=== PATIENT | female | born 1955 | race Caucasian/White ===

== ENCOUNTER 2020-10-18 13:52 | Outpatient (CLI) | payer OTHER, SELFPAY ==
--- NOTE | ~2020-10-18 | XR_ITS ---
EXAMINATION: XR shoulder LT min 2V DATE: 10/18/2020 14:16 INDICATION: Left shoulder pain. TECHNIQUE: 5 views of left shoulder were obtained. COMPARISON: None. FINDINGS: Bone alignment is normal. No fracture. There is mild osteoarthritis of glenohumeral joint c haracterized by tiny marginal osteophytes. Acromioclavicular joint is normal. IMPRESSION: 1. Mild glenohumeral joint osteoarthritis. Reviewed, dictated and finalized at location A. GER BALANCE
== END 2020-10-18 13:53 | disposition home or self-care (01) ==
PROVIDERS: PCP Internal Medicine; Visit Provider Nurse Practitioner Family
DX: M25.512 Pain in left shoulder (principal)
CPT/HCPCS: 73030

== ENCOUNTER 2020-11-03 10:21 | Outpatient (RCR) | payer OTHER, SELFPAY ==
--- NOTE | 2020-11-03 11:24 | PTOPEVAL ---
Thank you for referring Maribeth Crump to [facility].? The patient is scheduled to be seen for therapy? _2___x/week for 12 visits. Please review, sign, date and return this plan of care ANGÉLICA. I agree with and certify that the following plan of care is medically necessary. Referring Physician Date Admitting Provider: Attending Provider: Shen Pizarro MD Referring Provider: *PT Outpatient Evaluation Start: 11/03/20 08:29 Freq: Status: Active Protocol: Document 11/03/20 10:19 ACR (Rec: 11/03/20 11:23 ACR [id number]) Therapy Assessment Status Assessment Status Assessment Status Evaluation Evaluation Information Problem Diagnosis L frozen shoulder Onset 10/04/20 Subjective Information Patient states before COVID Query Text:As Reported By Patient/ she started having shoulder Family pain but did not go in until recently and was diagnosed with a frozen shoulder. Patient states she got an X- ray which showed a frozen shoulder. She states she does not have any radicular symptoms. Patient states she is having difficulty putting on her bra, mowing the grass, pulling weeds, sleeping, and reaching back or out for anything. Prior Level of Function Activity Level (Last 3 Months) Occupation retired Hand Dominance Right Activity of Daily Living Ability Independent Indoor/Home Mobility Independent Community Mobility Independent Stairs Ability Independent Functional Cognition (Planning, Shopping Independent , Taking Medications) Cooking Yes Cleaning Yes Laundry Yes Shopping Yes Driving Yes Pain Assessment Timing of Pain Assessment Timing of Pain Assessment Assessment Pain Scale Pain Scale Used Numeric (1 - 10) Self Report Pain Assessment Left Shoulder(s) Reported Pain Level 6 Pain Description Aching,Dull,Sharp,Shooting Pain Frequency Continuous Lowest Pain Intensity 0 Greatest Pain Intensity 9 Pain Score Pain Score 6: Self Report Interventions Used Interventions Used By Clinicians Activity or ADL's,Education, Electrical Stimulation, Exercise,Heat Upper
--- NOTE | 2021-01-06 17:24 | PCPTNOTE ---
Patient is a 65 year old female that participated in 11 visits for a L frozen shoulder. The patient is considering potential surgical intervention and would like to be discharged at this time. Please refer to most recent treatment note for discharge status. Thank you, Geraldine Jones, PT, DPT
== END 2020-12-08 13:47 | disposition home or self-care (01) ==
LOC: CHSPT 10:21
PROVIDERS: PCP Internal Medicine; Visit Provider Internal Medicine
DX: M25.512 Pain in left shoulder (principal); M75.02 Adhesive capsulitis of left shoulder
CPT/HCPCS: 97014; 97110; 97140; 97161; G0283

== ENCOUNTER 2020-12-11 06:38 | Outpatient (CLI) | payer OTHER, SELFPAY ==
--- NOTE | ~2020-12-11 | MR_ITS ---
EXAMINATION: MR shoulder LT wo con DATE: 12/11/2020 07:33 INDICATION: Left shoulder pain. TECHNIQUE: Magnetic resonance imaging (MRI) of the left shoulder was performed without intravenous co ntrast. Sequences included axial PD-weighted FS FSE, coronal oblique PD-weighted FS FSE and T2-weight ed FS FSE, and sagittal oblique T2-weighted FS FSE and T1-weighted FSE. COMPARISON: Left shoulder radiograph 10/18/2020 FINDINGS: Coracoacromial arch: The acromion undersurface is curved in morphology (type II). There is mild acromioclavicular joint os teoarthritis. There is mild subacromial/subdeltoid bursitis. Rotator cuff: There is mild supraspinatus and infraspinatus tendinopathy. Teres minor tendon is normal. There is mi ld subscapularis tendinopathy. No tear. There is no asymmetric fatty atrophy of the rotator cuff musc le bellies. Biceps tendon and glenoid labrum: Biceps tendon is in bicipital groove. Intra-articular biceps tendon is normal. The glenoid labrum is normal. Fluid: There is no glenohumeral joint effusion. Bones/cartilage: Humeral head cartilage is normal. Glenoid cartilage is normal. IMPRESSION: 1. Mild rotator cuff tendinopathy. No tear. 2. Mild subacromial/subdeltoid bursitis. 3. Mild acromioclavicular joint osteoarthritis. Reviewed, dictated and finalized at location A.
== END 2020-12-11 06:39 | disposition home or self-care (01) ==
LOC: CHSIMG 06:40
PROVIDERS: PCP Internal Medicine; Visit Provider Internal Medicine
DX: M25.512 Pain in left shoulder (principal)
CPT/HCPCS: 73221

== ENCOUNTER 2021-08-02 00:14 | Day surgery (SDC) | payer OTHER, SELFPAY ==
[2021-07-22 09:41] VITALS: BMI 27.2
[2021-08-02 11:25] VITALS: BP 144/78; PULSE 95; RESP 18; TEMP 36.6; O2SAT 99
[2021-08-02] MEDS: LACTATED RINGERS 1,000 ML 150 ML IV CONT (11:42)
--- NOTE | 2021-08-02 11:43 | P.CONGI_ITS ---
Assessment and Plan Assessment and plan (1) Encounter for screening colonoscopy: Code(s): Z12.11 - Encounter for screening for malignant neoplasm of colon Status: Acute Assessment and Plan: Patient presents for screening colonoscopy. She appears to be at average risk for colon polyps. GI Consult Note Consult date/time: 08/02/21 11:43 HPI: Maribeth Crump is a 65 year old female Presents for screening colonoscopy. Patient's current weight appetite bowel movements are normal. She denies abdominal pain. She has had no bleeding. Family history is noncontributory. Last exam was 10 years ago. Review of Systems Review of Systems: All systems reviewed & are unremarkable except as noted in HPI and below PMFSH Family History Family History (Updated 02/25/19 @ 10:13 by DOCTOR UNKNOWN) Grandparent Family history of malignant neoplasm Father Family history of malignant neoplasm, Onset Age: 68 Other Hypertension Social History Social History Smoking status: Never smoker Alcohol intake: never Substance use: never Substance use type: does not use Living arrangements: with family Spiritual care concerns: Yes (Oriental Orthodox) Meds Home Medications and Allergies Home Medications Medication Instructions Recorded Confirmed Type rosuvastatin 10 mg PO DAILY 07/22/21 07/22/21 History Allergies Allergy/AdvReac Type Severity Reaction Status Date / Time azithromycin AdvReac Mild Diarrhea Verified 08/02/21 11:24 codeine AdvReac Mild Nausea and Verified 08/02/21 11:24 Vomiting Vital Signs Vital Signs - 24 hr 08/02/21 11:25 Temperature 97.8 F Pulse Rate 95 Respiratory Rate 18 Blood Pressure 144/78 H Pulse Oximetry 99 Exam Narrative: Physical exam reveals patient be alert. Vital signs stable. HEENT exam is unremarkable. Patient is anicteric. Lungs are clear to auscultation and percussion. Heart is without murmur or extra sounds. Abdominal exam bowel sounds are present soft nontender with no organomegaly. Digital external rectal exam is normal.
--- NOTE | 2021-08-02 12:01 | WPDANESEPPF ---
Anes - Initial Pre Proc Eval Procedure: Operation Date: 08/02/21 13:00 Proposed Procedures p Screening Colonoscopy - Rufino Pastor MD Date/Time: 08/02/21 12:01 Surgeon: Rufino Pastor MD Pre Op Diagnosis: neoplasm screening Patient Data Age: 65 Gender: F Height: 1.63 m Weight: 71 kg Last Vital Signs Temp 97.8 F 08/02/21 11:25 Pulse 95 08/02/21 11:25 Resp 18 08/02/21 11:25 BP 144/78 H 08/02/21 11:25 Pulse Ox 99 08/02/21 11:25 Allergies Allergy/AdvReac Type Severity Reaction Status Date / Time azithromycin AdvReac Mild Diarrhea Verified 08/02/21 11:24 codeine AdvReac Mild Nausea and Verified 08/02/21 11:24 Vomiting Home Medications Medication Instructions Recorded Confirmed Type rosuvastatin 10 mg PO DAILY 07/22/21 07/22/21 History Patient hx anesthesia problems: none Family hx anesthesia problems: none Results Review: All pre-operative results and documents have been reviewed as part of the pre-operative evaluation. PMFSH Past Medical History Medical History (Updated 08/02/21 @ 12:01 by Jose Jade MD) Hyperlipidemia Family History Family History (Updated 02/25/19 @ 10:13 by DOCTOR UNKNOWN) Grandparent Family history of malignant neoplasm Father Family history of malignant neoplasm, Onset Age: 68 Other Hypertension Social History Social History Smoking status: Never smoker Alcohol intake: never Substance use: never Substance use type: does not use Living arrangements: with family Spiritual care concerns: Yes (Anabaptist) Anes - Eval Final PreProcedure Day of Procedure 08/02/21 12:01 Patient weight: normal Heart: regular rate and rhythm Lungs: clear to auscultation Airway: Mallampati scale Last oral intake: >/= 8 hours ASA classification: II Emergent: no Anesthetic plan: proceed Anesthesia type and monitoring: general GIVS and standard monitoring Results Review: All pre-operative results and documents have been reviewed as part of the pre-operative evaluation. Informed Consent: The patient's anesthetic plan and its attendant risks and benefits were discussed with the patient/family/POA. Questions were solicited and answers provided to the satisfaction of the patient/family/POA.
[2021-08-02 12:31] VITALS: BP 124/76; PULSE 76; RESP 22; O2SAT 99
[2021-08-02 12:41] VITALS: BP 142/85; PULSE 79; RESP 19; O2SAT 100
[2021-08-02 12:51] VITALS: BP 144/89; PULSE 75; RESP 10; O2SAT 100
== END 2021-08-02 13:00 | disposition home or self-care (01) ==
PROVIDERS: PCP Internal Medicine; Visit Provider Internal Medicine Gastroenterology
PROC: 0DJD8ZZ Inspection of Lower Intestinal Tract, Via Natural or Artificial Opening Endoscopic (ICD-10-PCS; CPT 45378; principal; 2021-08-02 13:00)
DX: Z12.11 Encounter for screening for malignant neoplasm of colon (principal); K64.8 Other hemorrhoids; K57.30 Diverticulosis of large intestine without perforation or abscess without bleeding; E78.5 Hyperlipidemia, unspecified
CPT/HCPCS: 45378; J2001; J2704; J7120

== ENCOUNTER 2022-03-31 07:20 | Outpatient (CLI) | payer MEDICARE, SELFPAY ==
[2022-03-31 07:40] LABS: Hematocrit 45.1 % (35.0-42.0); Hemoglobin 14.8 g/dL (11.7-13.8); Mean Corpuscular HGB Conc 32.8 g/dL (32.0-36.0); Mean Corpuscular Hemoglobin 29.2 pg (27.0-31.0); Mean Corpuscular Volume 89.1 fL (78.0-102.0); Platelet Count Result 208 K/mm3 (150-420); Red Blood Count 5.06 M/mm3 (4.20-5.40); Red Cell Distribution Width 13.3 % (11.6-14.4); White Blood Count 6.8 K/mm3 (4.8-10.8)
[2022-03-31 08:16] LABS: Thyroid Stimulating Hormone 1.24 uIU/mL (0.36-3.74)
[2022-04-04 11:18] LABS: Sex Hormone Binding Globulin 7 nmol/L (14-73)
[2022-04-05 20:58] LABS: FSH 57.5 mIU/mL (***)
[2022-04-06 11:47] LABS: Testosterone Free 3.9 pg/mL (0.1-6.4); Testosterone Total 13 ng/dL (2-45)
[2022-04-08 20:47] LABS: Estradiol, Ultrasensitive 8 pg/mL
== END 2022-03-31 07:21 | disposition home or self-care (01) ==
LOC: CHSLAB 07:25
PROVIDERS: PCP Internal Medicine; Visit Provider Family Medicine
DX: N95.1 Menopausal and female climacteric states (principal); R53.83 Other fatigue; E34.9 Endocrine disorder, unspecified; R68.82 Decreased libido
CPT/HCPCS: 36415; 82670; 83001; 84270; 84402; 84403; 84443; 85027

== ENCOUNTER 2022-10-28 03:55 | Emergency (ER) | payer MEDICARE, OTHER, SELFPAY ==
--- NOTE | ~2022-10-28 | CT_ITS ---
EXAMINATION: CT abdomen pelvis wo con DATE: 10/28/2022 04:27 INDICATION: Left lower quadrant abdominal and flank pain. TECHNIQUE: Computed tomography (CT) of the abdomen and pelvis was performed without intravenous contr ast. Automated exposure control and iterative reconstruction technique were employed. The dose-length product was 498.50 mGy-cm. COMPARISON: None FINDINGS: Lung bases are clear. Heart size is normal. No pericardial or pleural effusion. Small sliding-type hi atal hernia. A couple calcified gallstones in the normal-appearing gallbladder with no pericholecysti c inflammatory stranding to suggest acute cholecystitis. Liver, spleen, pancreas and bilateral adrena l glands are normal. Kidneys and ureters are normal with no urolithiasis, hydroureteronephrosis or pe rinephric/ureteral stranding. There is mild colonic diverticulosis with a sigmoid predominance. Ther e is no adjacent inflammatory change to suggest diverticulitis. Small bowel and appendix are normal. Bladder is normal. No free intraperitoneal gas or fluid. No pathologically enlarged abdominal or pelv ic lymphadenopathy. Mild lumbar and mild to moderate and lumbosacral spondylosis. IMPRESSION: 1. No acute intra-abdominal/pelvic process. 2. Mild diverticulosis. 3. Cholelithiasis. 4. Small sliding-type hiatal hernia. Reviewed, dictated and finalized at location A. K MACHINE OPERATOR
[2022-10-28 04:00] VITALS: BP 156/79; PULSE 74; RESP 18; TEMP 36.1; O2SAT 99
--- NOTE | 2022-10-28 04:03 | ED.GENADULT ---
HPI - General Adult General Chief complaint: Abdominal Pain Stated complaint: Left side abd pain Time Seen by Provider: 10/28/22 04:03 History of Present Illness HPI narrative: the patient is a 66-year-old woman who has history of hyperlipidemia and no other medical conditions. Only operation is a hysterectomy on her abdomen years ago. The patient presents with left lower quadrant pain since 1:00 a.m. this morning, woke her up from sleep, worsening since that time, initially dull and now more sharp, constant in nature, localized to the left lower quadrant, nonradiating, moderate in intensity. Associated symptoms include nausea but no vomiting. No urinary symptoms such as dysuria urinary urgency or frequency or hematuria. No previous similar pain. No hematochezia or melena. No URI symptoms. No cough or dyspnea. No fevers or chills or diaphoresis. No diarrhea or constipation. Normal bowel movements. Related Data Home Medications Medication Instructions Recorded Confirmed rosuvastatin 10 mg tablet 10 mg PO DAILY 07/22/21 10/28/22 Allergies Allergy/AdvReac Type Severity Reaction Status Date / Time azithromycin AdvReac Mild Diarrhea Verified 08/02/21 11:24 codeine AdvReac Mild Nausea and Verified 08/02/21 11:24 Vomiting Review of Systems Review of Systems: All systems reviewed & are unremarkable except as noted in HPI and below Constitutional: Constitutional: Reports as per HPI, Reports no additional constitutional complaints, Denies chills, Denies excessive sweating, Denies fatigue, Denies fever(s), Denies headache(s) and Denies weakness Eyes: Eyes: Reports as per HPI, Reports no additional eye complaints, Denies change in vision and Denies photophobia ENT: Reports system reviewed and no additional complaints, except as documented, Reports as per HPI, Denies dysphagia, Denies vertigo, Denies dizziness, Denies headache(s), Denies lip swelling, Denies nasal congestion, Denies sore throat, Denies throat swelling and Denies tongue swelling Cardiovascular: Cardiovascular: Reports as per HPI, Reports no additional cardiovascular complaints, Denies chest pain, Denies syncope, Denies rapid heart rate and Denies dyspnea Respiratory: Respiratory: Reports as per HPI, Reports no additional respiratory complaints, Denies chest congestion, Denies cough, Denies dyspnea and Denies wheezing Gastrointestinal: Gastrointestinal: Reports as per HPI, Reports no additional gastrointestinal complaints, Reports abdominal pain, Denies constipation, Denies dysphagia, Denies diarrhea, Reports nausea and Denies vomiting Genitourinary: Genitourinary: Reports as per HPI, Denies hematuria, Denies urinary frequency, Denies dysuria, Denies urinary incontinence and Denies urinary urgency Musculoskeletal: Musculoskeletal: Reports no additional musculoskeletal complaints, Denies back pain, Denies myalgias, Denies arthralgias, Denies joint swelling and Denies numbness Integumentary/Breasts: Skin/Breast: Reports system reviewed and no additional complaints, except as docu, Denies pruritus, Denies erythema, Denies rash and Denies skin ulcer Neurologic: Reports system reviewed and no additional complaints, except as documented, Reports as per HPI, Denies confusion, Denies vertigo, Denies dizziness, Denies syncope, Denies headache(s), Denies focal weakness, Denies numbness and Denies weakness Psychiatric: Psychiatric: Reports as per HPI, Denies anxiety, Denies confusion, Denies depression, Denies homicidal ideation and Denies suicidal ideation Endocrine: Endocrine: Reports no additional endocrine complaints, Denies excessive sweating, Denies fatigue, Denies polydipsia and Denies polyuria Hematologic/Lymphatic: Hematologic/Lymphatic: Reports no additional hematologic/lymphatic complaints, Denies easy bleeding and Denies easy bruising Allergic/Immunologic: Allergic/Immunologic: Reports no additional allergic/immunologic complaints, Denies lip swelling, Denies throat
[2022-10-28 04:19] LABS: Basophils Absolute Auto 0.05 K/mm3 (0.00-0.10); Basophils Percent Auto 0.8 % (0.0-1.0); Eosinophils Absolute Auto 0.06 K/mm3 (0.02-0.50); Eosinophils Percent Auto 0.9 % (1.0-6.0); Hematocrit 42.1 % (35.0-42.0); Hemoglobin 13.9 g/dL (11.7-13.8); Immature Granulocyte Absolute 0.02 K/mm3 (0.00-0.00); Immature Granulocyte Percent A 0.3 % (0.0-0.0); Lymphocytes Absolute Auto 2.12 K/mm3 (1.10-4.50); Lymphocytes Percent Auto 33.2 % (18.0-42.0); Mean Corpuscular Volume 87.9 fL (78.0-102.0); Mean Platelet Volume 10.7 fl (9.2-11.8); Monocytes Absolute Auto 0.48 K/mm3 (0.10-0.90); Monocytes Percent Auto 7.5 % (2.0-11.0); Neutrophils Absolute Auto 3.7 K/mm3 (1.7-7.2); Neutrophils Percent Auto 57.3 % (50.0-70.0); Platelet Count Result 227 K/mm3 (150-420); Red Blood Count 4.79 M/mm3 (4.20-5.40); Red Cell Distribution Width 13.2 % (11.6-14.4); White Blood Count 6.4 K/mm3 (4.8-10.8)
[2022-10-28 04:20] LABS: Appearance Urine Clear (Clear); Bilirubin Urine Negative (Negative); Blood Urine Negative (Negative); Color Urine Light Yellow (Yellow); Glucose Urine UA Negative (Negative); Ketones Urine Negative (Negative); Leukocyte Esterase Ur Negative LEU/UL (Negative); Nitrate Urine Negative (Negative); Protein Urine Negative (Negative); Urobilinogen Urine 0.2 mg/dL (0.2-1.0)
[2022-10-28 04:22] LABS: Add Urine Microscopic? NO
[2022-10-28] MEDS: SODIUM CHLORIDE 0.9% IV 1,000 ML 999 ML IV CONT (04:34)
[2022-10-28] MEDS: KETOROLAC 30 MG/ML VIAL (*BKC) 15 MG IV PUSH (04:35)
[2022-10-28] MEDS: ONDANSETRON INJ 4 MG/2 ML VIAL IV PUSH (04:35)
[2022-10-28 04:36] LABS: Alanine Aminotransferase 20 U/L (14-59); Albumin Level 3.8 g/dL (3.4-5.0); Alkaline Phosphatase 109 U/L (46-116); Amylase 33 U/L (25-115); Anion Gap 8 mmol/L (8-16); Aspartate Amino Transferase 15 U/L (15-37); Bilirubin,Total 0.5 mg/dL (0.00-1.00); Blood Urea Nitrogen 14 mg/dL (7-18); Calcium 8.7 mg/dL (8.5-10.1); Carbon Dioxide 28 mmol/L (21-32); Chloride 105 mmol/L (98-108); Estimated CRCL calculation 57 ml/min; Estimated Glomerular Filt Rate > 60; Glucose 102 mg/dL (70-99); Lipase 29 U/L (16-77); Osmolality Calculated 292 mOsm/kg (285-295); Potassium 4.2 mmol/L (3.5-5.1); Sodium 141 mmol/L (136-145); Total Protein 7.4 g/dL (6.4-8.2)
[2022-10-28 05:45] VITALS: BP 145/82; PULSE 78; RESP 18; O2SAT 99
--- NOTE | 2022-10-28 05:50 | PC.NURSE ---
Pt resting c blanket, VSS, explained about wait time for CT results and reason for delay.
[2022-10-28 06:26] VITALS: BP 113/57; PULSE 74; RESP 20; O2SAT 100
--- NOTE | 2022-10-28 06:29 | PC.NURSE ---
Lights dimmed, VSS pt. resting, still awaiting CT scan results report.
[2022-10-28 08:09] VITALS: BP 132/75; PULSE 72; RESP 18; O2SAT 98
== END 2022-10-28 08:10 | disposition home or self-care (01) ==
PROVIDERS: Emergency Medicine; Emergency Provider Emergency Medicine; PCP Internal Medicine
DX: R10.32 Left lower quadrant pain (principal); E78.5 Hyperlipidemia, unspecified
CPT/HCPCS: 36415; 74176; 80053; 81003; 82150; 83690; 85025; 96361; 96374; 96375; 99284; J1885; J2405; J7030

== ENCOUNTER 2024-10-11 07:20 | Emergency (ER) | payer MEDICARE, OTHER, SELFPAY ==
--- NOTE | ~2024-10-11 | XR_ITS ---
EXAMINATION: XR knee RT min 4V DATE: 10/11/2024 07:40 INDICATION: Anterior right knee pain and swelling post fall TECHNIQUE: Anteroposterior, sunrise, oblique and crosstable lateral views of the right knee were obta ined COMPARISON: None. FINDINGS: Subtle linear lucency projecting across the inferior third of the patella suspicious for nondisplaced intra-articular fracture. Alignment remains normal. No other lesions suspicious for fracture identif ied. Joint spaces appear normal on nonweightbearing imaging. Mild infrapatellar soft tissue swelling. Possible small right knee joint effusion. Cluster of 5, 1-3 mm calcification projecting over the int ercondylar notch which could represent degenerative loose bodies or heterotopic ossification related to old trauma. IMPRESSION: 1. Likely nondisplaced intra-articular fracture extending across the inferior third of the patella. Reviewed, dictated and finalized at location A. NG FELLER BLINDSTITCH IMPRESSION: 1. Likely nondisplaced intra-articular fracture extending across the inferior t hird of the patella.
[2024-10-11 07:20] VITALS: BP 144/98; PULSE 98; RESP 16; TEMP 36.3; O2SAT 99
--- OUTSIDE RECORDS SUMMARY | 2024-10-11 07:23 | XMS_ITS | Referral Summary ---
Author Organization [facility] Address [address] [place] [address] Care Team Providers Care Key Worker Name Role Phone Shen Pizarro MD Primary Care Provider Allergies No known active allergies Active Problems Problem Noted Date Diagnosed Date Abnormal mammogram 09/19/2010 Social History Tobacco Use Types Packs/Day Years Used Date Smoking Tobacco: Never Assessed Comments No Sex and Gender Information Value Date Recorded Sex Assigned at Not on file Legal Sex Female 4:15 PM DEAN OF FACULTY Gender Identity Not on file Sexual Orientation Not on file Last Filed Vital Signs Vital Sign Reading Time Taken Comments Blood Pressure - - Pulse - - Temperature - - Respiratory Rate - - Oxygen Saturation - - Inhaled Oxygen Concentration - - Weight 70.3 kg (155 lb) 04/19/2020 1:41 PM CDT Height 162.6 cm (5' 4 ) 07/10/2023 8:21 AM DEAN OF FACULTY Body Mass Index 26.61 04/19/2020 1:41 PM CDT Plan of Treatment Not on file Procedures Procedure Name Priority Date/Time Associated Diagnosis Comments SCREENING MAMMOGRAM BILATERAL W AZ Schedule Routine, Read Routine (OP Routine) 07/10/2023 8:29 AM DEAN OF FACULTY Screening mammogram, encounter for from Last 3 Months or Most Recently Relevant to Health Maintenance Results * Screening Mammogram Bilateral W Az (07/10/2023 8:29 AM DEAN OF FACULTY) Anatomical Region Laterality Modality Breast Bilateral Mammography 07/10/2023 8:51 AM DEAN OF FACULTY Impressions 07/10/2023 8:51 AM DEAN OF FACULTY There is no mammographic evidence of malignancy. A 1 year screening mammogram is recommended. BI-RADS: 2 - Benign. The patient has been or will be contacted. The patient will be entered into a reminder system with a target due date of 1 year for her next mammogram. Electronically signed by: Naresh Miller M.D. Narrative 07/10/2023 8:51 AM DEAN OF FACULTY EXAMINATION: SCREENING MAMMOGRAM BILATERAL W AZ ORDERING HEALTHCARE PROVIDER: SELF SCREENING MAMMOGRAM HISTORY: Routine screening mammography. COMPARISON: 06/28/2022, 04/20/2021, 04/19/2020, 01/03/2019, 12/13/2017, 12/07/2016, 11/15/2015 TECHNIQUE: CC and MLO views of the bilateral breasts were obtained with digital technique using breast tomosynthesis with C view. Computer aided detection was utilized. FINDINGS: DENSITY: There are scattered fibroglandular elements in the bilateral breasts. BREASTS: There is an unchanged benign oval circumscribed mass at the 12-1 o'clock position of the right breast, posterior depth. There is also a stable benign intramammary lymph node in the lateral right breast, posterior depth. There is no new suspicious finding in either breast on mammogram. us Self Screening Mammogram IMG MAMMO PROCEDURES Fi nal Result from Last 3 Months or Most Recently Relevant to Health Maintenance Insurance [facility] CHOICE PLUS [facility] CHOICE PLUS MEDICARE [employer] Care Teams Key Worker Relationship Specialty Start Date End Date Shen Pizarro MD [address] [place] [address] [facility] - General 12/07/16
--- OUTSIDE RECORDS SUMMARY | 2024-10-11 07:23 | XMS_ITS | Clinical Summary ---
Author Organization [facility] Address [address] [place] [address] Care Team Providers Care Supervisory Forester Name Role Phone Shen Pizarro MD Primary Care Provider [phone] Allergies No known active allergies Active Problems Problem Noted Date Diagnosed Date Abnormal mammogram 09/19/2010 Surgical History Surgery Date Site/Laterality Comments HYSTERECTOMY 08/20/2003 - 08/19/2004 OOPHORECTOMY 08/20/2003 - 08/19/2004 Family History Medical History Relation Name Comments Breast cancer Neg Hx Ovarian cancer Neg Hx Thyroid cancer Neg Hx Social History Tobacco Use Types Packs/Day Years Used Date Smoking Tobacco: Never Assessed Comments No Sex and Gender Information Value Date Recorded Sex Assigned at Not on file Legal Sex Female 4:15 PM FILENET ARCHITECT Gender Identity Not on file Sexual Orientation Not on file Obstetrics History Para Term AB IAB SAB Ectopic Multiple Livin g Live Births 2 2 2 Date Outcome GA Total Labor Labor/2nd/3rd Weight Sex Type Anes PTL Kathie A1 A5 Name Clin Term Term Last Filed Vital Signs Vital Sign Reading Time Taken Comments Blood Pressure - - Pulse - - Temperature - - Respiratory Rate - - Oxygen Saturation - - Inhaled Oxygen Concentration - - Weight 70.3 kg (155 lb) 04/19/2020 1:41 PM CDT Height 162.6 cm (5' 4 ) 07/10/2023 8:21 AM FILENET ARCHITECT Body Mass Index 26.61 04/19/2020 1:41 PM CDT Plan of Treatment Health Maintenance Due Date Last Done Comments Colon Cancer Screening-Colonoscopy 1955 Depression Screening 1955 Fall Risk Assessment 1955 Hepatitis C Screening 1955 Osteoporosis Screening-Bone Density Scan 1955 Hepatitis B Screening 12/28/1973 Zoster Vaccine (2 of 3) 03/07/2016 01/11/2016 Pneumococcal vaccine 65+ (1 of 1 - PCV) 12/28/2020 Well Visit 65+ 12/28/2020 Influenza Vaccine (#1) 2024 9, 05/20/2018, 05/08/2017, Additional history exists Breast Cancer Screening-Mammogram 07/10/2024 07/10/2023, 06/28/2022, 04/20/2021, Additional history exists DTaP/Tdap/Td Vaccine (3 - Td or Tdap) 07/02/2029 07/02/2019, 09/30/2009 Procedures Procedure Name Priority Date/Time Associated Diagnosis Comments SCREENING MAMMOGRAM BILATERAL W XU Schedule Routine, Read Routine (OP Routine) 07/10/2023 8:29 AM FILENET ARCHITECT Screening mammogram, encounter for from Last 3 Months or Most Recently Relevant to Health Maintenance Results * Screening Mammogram Bilateral W Xu (07/10/2023 8:29 AM FILENET ARCHITECT) Anatomical Region Laterality Modality Breast Bilateral Mammography 07/10/2023 8:51 AM FILENET ARCHITECT Impressions 07/10/2023 8:51 AM FILENET ARCHITECT There is no mammographic evidence of malignancy. A 1 year screening mammogram is recommended. BI-RADS: 2 - Benign. The patient has been or will be contacted. The patient will be entered into a reminder system with a target due date of 1 year for her next mammogram. Electronically signed by: Naresh Miller M.D. Narrative 07/10/2023 8:51 AM FILENET ARCHITECT EXAMINATION: SCREENING MAMMOGRAM BILATERAL W XU ORDERING HEALTHCARE PROVIDER: SELF SCREENING MAMMOGRAM HISTORY: [...] Most Recently Relevant to Health Maintenance Insurance [facility] CHOICE PLUS MEDICARE [employer] Care Teams Supervisory Forester Relationship Specialty Start Date End Date Shen Pizarro MD [address] [place] [address] PCP - General 12/07/16
[2024-10-11] MEDS: ACETAMINOPHEN 500 MG TABLET 1000 MG PO (07:44)
--- NOTE | 2024-10-11 07:48 | ED.LOWEXIN ---
HPI - Extremity Injury (Lower) General Chief Complaint: Extremity Injury, Lower Stated Complaint: fall; right knee pain Time Seen by Provider: 10/11/24 07:24 History of Present Illness HPI Narrative: Patient reports that she was walking down 3 stairs out of her garage this morning when she fell from the 2nd stair landing directly on her right knee. She immediately had pain in the area and was unable to bear weight on the knee. She happened to have some crutches at home already and so use these to come to the emergency department. She denies any previous injury to this knee. No history of knee replacement. The patient is not on any blood thinners. Patient denies any other injuries in the event. She did not hit her head. She did not lose consciousness. She denies any hip pain. Denies any foot pain. Related Data Home Medications ?Medication ?Instructions ?Recorded ?Confirmed ?Last Taken ?Type rosuvastatin 10 mg tablet 10 mg PO DAILY 07/22/21 10/28/22 08/01/21 History Allergies Allergy/AdvReac Type Severity Reaction Status Date / Time azithromycin AdvReac Mild Diarrhea Verified 10/11/24 07:24 codeine AdvReac Mild Nausea and Verified 10/11/24 07:24 Vomiting Review of Systems Review of Systems: Prior to the fall today patient was in her usual state of health and she denies any recent illness or other injuries. She is not having any trouble breathing or any chest pain. [facility] Past Medical History Medical History Hyperlipidemia Family History Family History Grandparent Family history of malignant neoplasm Father Family history of malignant neoplasm, Onset Age: 68 Other Hypertension Social History Social History Smoking status: Never smoker Alcohol intake: never Substance use: never Substance use type: does not use Living arrangements: with family Spiritual care concerns: Yes (Moravian) Exam Narrative: Exam of the right knee shows an approximate 5 cm x 5 cm hematoma with superficial abrasions over the anterior knee in distribution of the patella. There is no obvious deformity other than the swelling. Tenderness over the patella in distribution of the hematoma. No tenderness on the lateral or posterior knee. Range of motion is limited by pain but patient does have active extension intact. Distal pulses are intact. No trauma noted to the ankle full range of motion no swelling. No trauma noted to the right hip full range of motion no pain no swelling. Course Vital Signs Vital signs: Vital Signs Temperature 36.3 C L 10/11/24 07:20 Pulse Rate 98 10/11/24 07:20 Respiratory Rate 16 10/11/24 07:20 Blood Pressure 144/98 H 10/11/24 07:20 Pulse Oximetry 99 10/11/24 07:20 Oxygen Delivery Room Air 10/11/24 07:20 Temperature 36.3 C L 10/11/24 07:20 Pulse Rate 75 10/11/24 08:16 Respiratory Rate 16 10/11/24 08:16 Blood Pressure 131/85 10/11/24 08:16 Pulse Oximetry 99 10/11/24 08:16 Oxygen Delivery Room Air 10/11/24 08:16 MDM - Extremity Injury (Lower) MDM Narrative Medical decision making narrative: Patient was placed in Room #:?2 Independent Historian: the patient External Source Review: none Differential diagnosis includes but not limited to:? patellar fracture. Various other ligamentous injuries including ACL tear or MCL tear. Possible meniscal tear. Likely sprain of knee in addition to any fractures. Medications were Reviewed: Home medications Independently Interpreted by me: none Medications, treatment, ED course: patient received 1 g of acetaminophen for pain. x-rays were obtained. Knee was wrapped in an Rikki bandage placed in a knee immobilizer. Instructions for follow-up with PCP and orthopedic nurse practitioner. radiology confirms: Subtle linear lucency projecting across the inferior third of the patella suspicious for nondisplaced intra-articular fracture. Social situation impacting patients care: Patient lives independently in the community with her Shared decision making:? patient is amenable to the plan Accepting physician: N DISCHARGE DIAGNOSIS: patellar fracture DISPOSITION: home with follow-up PCP and orthopedic nurse practitioner CONDITION AT DISCHARGE:? stable Discharge Plan Discharge Clinical Impression: Nondisplaced comminuted fracture of right patella Patient Disposition: Home, Self-Care Condition: Stable Instructions: Antibiotic Form, Knee Pain (ED) Additional Instructions: You have a subtle fracture of your knee cap also known as the patella. Please keep the Rikki wrap and a knee immobilizer on at all times. It can be remove to readjust them or to sit on a shower chair while bathing but please replace them quickly after that. Do not put any weight on your leg until you are seen in follow-up. I recommend you call 1st thing Sunday morning to make an appointment with your primary care physician. You also need to see an orthopedic nurse practitioner. The on-account resolution specialist in the [facility] today is Dr. Benny Monte [phone]. if you call his office they can help schedule you for follow-up. As we discussed, please return to the emergency department immediately if you have new severe pain or if you notice new sudden swelling and redness in your leg as this could be a sign of a blood clot. for pain, alternate taking acetaminophen 1000 mg every 8 hours and ibuprofen 400 mg every 6 hours. He only need to take these medications as needed for pain you do not have to take them around the clock if your knee feels okay. Patient Language: Tajik Prescriptions: No Action ondansetron 4 mg tablet,disintegrating 4 mg PO Q6H PRN (Reason: nausea and vomiting) Qty: 10 0RF rosuvastatin 10 mg tablet 10 mg PO DAILY Follow-up/Referrals: Shen Pizarro MD [Primary Care Provider] - Time of Disposition: 08:09
--- OUTSIDE RECORDS SUMMARY | 2024-10-11 08:02 | XMS_ITS | Clinical Summary ---
Author Organization [facility] Address [address] [place] [address] Care Team Providers Care Ethnoarchaeologist Name Role Phone Shen Pizarro MD Primary Care Provider [phone] Allergies No known active allergies Active Problems [...] on file Legal Sex Female 4:15 PM WEB SITE PROJECT MANAGER Gender Identity Not on file Sexual Orientation [...] cm (5' 4 ) 07/10/2023 8:21 AM WEB SITE PROJECT MANAGER Body Mass Index 26.61 04/19/2020 1:41 PM CDT Plan of Treatment Health Maintenance Due Date Last Done Comments Colon Cancer Screening-Colonoscopy 1955 Depression Screening 1955 Fall Risk Assessment 1955 Hepatitis C Screening 1955 Osteoporosis Screening-Bone Density Scan 1955 Hepatitis B Screening 12/28/1973 Pneumococcal vaccine 65+ (1 of 1 - PCV) 12/28/2005 Zoster Vaccine (2 of 3) 03/07/2016 01/11/2016 Well Visit 65+ 12/28/2020 Influenza Vaccine (#1) 2024 9, 05/20/2018, 05/08/2017, Additional history exists Breast Cancer Screening-Mammogram 07/10/2024 07/10/2023, 06/28/2022, 04/20/2021, Additional history exists DTaP/Tdap/Td Vaccine (3 - Td or Tdap) 07/02/2029 07/02/2019, 09/30/2009 Procedures Procedure Name Priority Date/Time Associated Diagnosis Comments SCREENING MAMMOGRAM BILATERAL W XU Schedule Routine, Read Routine (OP Routine) 07/10/2023 8:29 AM WEB SITE PROJECT MANAGER Screening mammogram, encounter for from Last 3 Months or Most Recently Relevant to Health Maintenance Results * Screening Mammogram Bilateral W Xu (07/10/2023 8:29 AM WEB SITE PROJECT MANAGER) Anatomical Region Laterality Modality Breast Bilateral Mammography 07/10/2023 8:51 AM WEB SITE PROJECT MANAGER Impressions 07/10/2023 8:51 AM WEB SITE PROJECT MANAGER There is no mammographic evidence of malignancy. A 1 year screening mammogram is recommended. BI-RADS: 2 - Benign. The patient has been or will be contacted. The patient will be entered into a reminder system with a target due date of 1 year for her next mammogram. Electronically signed by: Naresh Miller M.D. Narrative 07/10/2023 8:51 AM WEB SITE PROJECT MANAGER EXAMINATION: SCREENING MAMMOGRAM BILATERAL W XU ORDERING [...] Most Recently Relevant to Health Maintenance Insurance [facility] HMO/PPO Address: [address] [address] [place] [address] [facility] CHOICE PLUS [facility] HMO/PPO Address: [address] [address] [place] [address] MEDICARE [employer] Care Teams Ethnoarchaeologist Relationship Specialty Start Date End Date Shen Pizarro MD [address] [place] [address] PCP - General 12/07/16
--- OUTSIDE RECORDS SUMMARY | 2024-10-11 08:02 | XMS_ITS | Referral Summary ---
Author Organization [facility] Address [address] [place] [address] Care Team Providers Care Manager Mining Name Role Phone Shen Pizarro MD Primary Care Provider Allergies No known active allergies Active Problems Problem Noted Date Diagnosed Date Abnormal mammogram 09/19/2010 Social History Tobacco Use Types Packs/Day Years Used Date Smoking Tobacco: Never Assessed Comments No Sex and Gender Information Value Date Recorded Sex Assigned at Not on file Legal Sex Female 4:15 PM ROLL HANDLER Gender Identity Not on file Sexual Orientation Not on file Last Filed Vital Signs Vital Sign Reading Time Taken Comments Blood Pressure - - Pulse - - Temperature - - Respiratory Rate - - Oxygen Saturation - - Inhaled Oxygen Concentration - - Weight 70.3 kg (155 lb) 04/19/2020 1:41 PM CDT Height 162.6 cm (5' 4 ) 07/10/2023 8:21 AM ROLL HANDLER Body Mass Index 26.61 04/19/2020 1:41 PM CDT Plan of Treatment Not on file Procedures Procedure Name Priority Date/Time Associated Diagnosis Comments SCREENING MAMMOGRAM BILATERAL W AZ Schedule Routine, Read Routine (OP Routine) 07/10/2023 8:29 AM ROLL HANDLER Screening mammogram, encounter for from Last 3 Months or Most Recently Relevant to Health Maintenance Results * Screening Mammogram Bilateral W Az (07/10/2023 8:29 AM ROLL HANDLER) Anatomical Region Laterality Modality Breast Bilateral Mammography 07/10/2023 8:51 AM ROLL HANDLER Impressions 07/10/2023 8:51 AM ROLL HANDLER There is no mammographic evidence of malignancy. A 1 year screening mammogram is recommended. BI-RADS: 2 - Benign. The patient has been or will be contacted. The patient will be entered into a reminder system with a target due date of 1 year for her next mammogram. Electronically signed by: Naresh Miller M.D. Narrative 07/10/2023 8:51 AM ROLL HANDLER EXAMINATION: SCREENING MAMMOGRAM BILATERAL W AZ ORDERING [...] Most Recently Relevant to Health Maintenance Insurance [facility] CHOICE PLUS [facility] H[facility]/PPO Address: [facility] [address] [place] [address] [facility] CHOICE PLUS [facility] HMO/PPO Address: [address] [address] [place] [address] MEDICARE [employer] Care Teams Manager Mining Relationship Specialty Start Date End Date Shen Pizarro MD [address] [place] [address] [facility] - General 12/07/16
[2024-10-11 08:16] VITALS: BP 131/85; PULSE 75; RESP 16; O2SAT 99
== END 2024-10-11 08:21 | disposition home or self-care (01) ==
PROVIDERS: Emergency Provider Family Medicine; PCP Internal Medicine
DX: S82.001A Unspecified fracture of right patella, initial encounter for closed fracture (principal); E78.5 Hyperlipidemia, unspecified; W10.9XXA Fall (on) (from) unspecified stairs and steps, initial encounter
CPT/HCPCS: 73564; 99283; L1830

== ENCOUNTER 2024-11-04 08:49 | Outpatient (CLI) | payer MEDICARE, OTHER, SELFPAY ==
--- NOTE | ~2024-11-04 | XR_ITS ---
Right Knee Technique: AP, lateral, and sunrise views were obtained. Clinical History: Patellar fracture COMPARISON: 10/11/2024 Findings: Nondisplaced transverse fracture of the patella is stable from prior exam. Joint spaces are preserved without degenerative or erosive change. Soft tissues are unremarkable. No joint effusion i s seen. Impression: Stable nondisplaced transverse fracture of the patella. Reviewed, dictated and finalized at location M. Impression: Stable nondisplaced transverse fracture of the patella.
--- OUTSIDE RECORDS SUMMARY | 2024-11-04 09:14 | XMS_ITS | Clinical Summary ---
Author Organization [facility] Address [address] [place] [address] Care Team Providers Care Boat Builder Name Role Phone Shen Pizarro MD Primary Care Provider [phone] Allergies No known active allergies Active Problems Problem Noted Date Diagnosed Date Abnormal mammogram 09/19/2010 Encounters Date Type Department Care Team Description 10/31/2024 9:09 AM CDT - 10/31/2024 11:59 PM CDT Hospital Encounter [facility] [address] [place] [address] Screening mammogram, encounter for Discharge Disposition: Discharge to home or self care from Last 3 Months Surgical History Surgery Date Site/Laterality Comments HYSTERECTOMY [...] on file Legal Sex Female 4:15 PM BINDER FIXER Gender Identity Not on file Sexual Orientation [...] cm (5' 4 ) 07/10/2023 8:21 AM BINDER FIXER Body Mass Index 26.61 04/19/2020 1:41 PM [...] Additional history exists Breast Cancer Screening-Mammogram 07/10/2024 10/31/2024, 07/10/2023, 06/28/2022, Additional history exists DTaP/Tdap/Td Vaccine (3 - Td or Tdap) 07/02/2029 07/02/2019, 09/30/2009 Procedures Procedure Name Priority Date/Time Associated Diagnosis Comments SCREENING MAMMOGRAM BILATERAL W AZ Schedule Routine, Read Routine (OP Routine) 10/31/2024 9:27 AM CDT Screening mammogram, encounter for from Last 3 Months Results * Screening Mammogram Bilateral W Az (10/31/2024 9:27 AM CDT) Anatomical Region Laterality Modality Breast Bilateral Mammography 11/03/2024 10:3 6 AM CDT Impressions 11/03/2024 10:36 AM CDT There is no mammographic evidence to suggest malignancy. The patient may continue screening mammography as per ACR guidelines. FINAL ASSESSMENT: BI-RADS Category 1: Negative. Electronically signed by: Evie Gutierrez M.D. Narrative 11/03/2024 10:36 AM CDT EXAMINATION: BILATERAL SCREENING MAMMOGRAM WITH TOMOGRAPHY HISTORY: Screening. COMPARISON(S): 07/10/2023, 06/28/2022, 04/20/2021, 04/19/2020. TECHNIQUE: Full-field 2D images and digital tomosynthesis images were obtained. CAD was utilized. BREAST PARENCHYMAL COMPOSITION: There are scattered areas of fibroglandular density. FINDINGS: There are no suspicious masses, calcifications or areas of architectural distortion in either breast. There is no significant change. Procedure Note Evie Gutierrez MD - 11/03/2024 EXAMINATION: BILATERAL SCREENING MAMMOGRAM WITH TOMOGRAPHY HISTORY: Screening. COMPARISON(S): 07/10/2023, 06/28/2022, 04/20/2021, 04/19/2020. TECHNIQUE: Full-field 2D images and digital tomosynthesis images were obtained. CAD was utilized. BREAST PARENCHYMAL COMPOSITION: There are scattered areas of fibroglandular density. FINDINGS: There are no suspicious masses, calcifications or areas of architectural distortion in either breast. There is no significant change. IMPRESSION: There is no mammographic evidence to suggest malignancy. The patient may continue screening mammography as per ACR guidelines. FINAL ASSESSMENT: BI-RADS Category 1: Negative. Electronically signed by: Evie Gutierrez M.D. us Self Screening Mammogram IMG MAMMO PROCEDURES Fi nal Result from Last 3 Months Insurance [facility] CHOICE PL[facility] H[facility]/PPO Address: [facility] [address] [place] [address] [facility] CHOICE PLUS [facility] H[facility]/PPO Address: [address] [address] [place] [address] MEDICARE [employer] Care Teams Boat Builder Relationship Specialty Start Date End Date Shen Pizarro MD [address] [place] [address] PCP - General 12/07/16
--- OUTSIDE RECORDS SUMMARY | 2024-11-04 09:14 | XMS_ITS | Referral Summary ---
Author Organization [facility] Address [address] [place] [address] Care Team Providers Care Organisational Psychologist Name Role Phone Shen Pizarro MD Primary Care Provider [phone] Encounters Date Type Department Care Team Description 10/31/2024 9:09 AM CDT - 10/31/2024 11:59 PM CDT Hospital Encounter [facility] [address] [place] [id number] Screening mammogram, encounter for Discharge Disposition: Discharge to home or self care from Last 3 Months Allergies No known active allergies Active Problems Problem Noted Date Diagnosed Date Abnormal mammogram 09/19/2010 Social History Tobacco Use Types Packs/Day Years Used Date Smoking Tobacco: Never Assessed Comments No Sex and Gender Information Value Date Recorded Sex Assigned at Not on file Legal Sex Female 4:15 PM ACTION INSTALLER Gender Identity Not on file Sexual Orientation Not on file Last Filed Vital Signs Vital Sign Reading Time Taken Comments Blood Pressure - - Pulse - - Temperature - - Respiratory Rate - - Oxygen Saturation - - Inhaled Oxygen Concentration - - Weight 70.3 kg (155 lb) 04/19/2020 1:41 PM CDT Height 162.6 cm (5' 4 ) 07/10/2023 8:21 AM ACTION INSTALLER Body Mass Index 26.61 04/19/2020 1:41 PM CDT Plan of Treatment Not on file Procedures Procedure Name Priority Date/Time Associated Diagnosis Comments SCREENING MAMMOGRAM BILATERAL W XU Schedule Routine, Read Routine (OP Routine) 10/31/2024 9:27 AM CDT Screening mammogram, encounter for from Last 3 Months Results * Screening Mammogram Bilateral W Xu (10/31/2024 9:27 AM CDT) Anatomical Region Laterality [...] nal Result from Last 3 Months Insurance [facility] CHOICE PLUS [address] CHOICE PLUS MEDICARE [facility] [place] [address] Care Teams Organisational Psychologist Relationship Specialty Start Date End Date Shen Pizarro MD [address] [place] [address] PCP - General 12/07/16
== END 2024-11-04 08:50 | disposition home or self-care (01) ==
PROVIDERS: PCP Internal Medicine; Visit Provider Internal Medicine
DX: S82.034A Nondisplaced transverse fracture of right patella, initial encounter for closed fracture (principal)
CPT/HCPCS: 73562

== ENCOUNTER 2024-11-17 13:31 | Outpatient (CLI) | payer MEDICARE, OTHER, SELFPAY ==
--- NOTE | ~2024-11-17 | US_ITS ---
EXAMINATION: US soft tissue head and neck DATE: 11/17/2024 14:09 INDICATION: Cervical lymphadenopathy. TECHNIQUE: Multiple grayscale and Doppler ultrasound images of the head and neck were obtained. COMPARISON: None FINDINGS: There is a normal superficial lymph node in the patient's area of concern in the right head and neck. IMPRESSION: 1. No abnormal mass or lymphadenopathy. Reviewed, dictated and finalized at location A.
--- OUTSIDE RECORDS SUMMARY | 2024-11-17 14:48 | XMS_ITS | Referral Summary ---
Author Organization [facility] Address [address] [place] [address] Care Team Providers Care Envelope Folding Machine Operator Name Role Phone Shen Pizarro MD Primary Care Provider [phone] Encounters Date Type Department Care Team Description 10/31/2024 9:09 AM CDT - 10/31/2024 11:59 PM CDT Hospital Encounter [facility] [address] [place] [address] Screening mammogram, encounter for Discharge Disposition: Discharge [...] on file Legal Sex Female 4:15 PM DRUM PRINTER Gender Identity Not on file Sexual Orientation Not on file Last Filed Vital Signs Vital Sign Reading Time Taken Comments Blood Pressure - - Pulse - - Temperature - - Respiratory Rate - - Oxygen Saturation - - Inhaled Oxygen Concentration - - Weight 70.3 kg (155 lb) 04/19/2020 1:41 PM CDT Height 162.6 cm (5' 4 ) 07/10/2023 8:21 AM DRUM PRINTER Body Mass Index 26.61 04/19/2020 1:41 PM [...] either breast. There is no significant change. us Self Screening Mammogram IMG MAMMO PROCEDURES Fi nal Result from Last 3 Months Insurance [facility]ICE PL[facility] MEDICARE [employer] Care Teams Envelope Folding Machine Operator Relationship Specialty Start Date End Date Shen Pizarro MD [address] [place], [place] [id number] PCP - General 12/07/16
--- OUTSIDE RECORDS SUMMARY | 2024-11-17 14:48 | XMS_ITS | Clinical Summary ---
Author Organization [facility] Address [address] [place] [address] Care Team Providers Care Specialty Trimmer Name Role Phone Shen Pizarro MD Primary Care Provider [phone] Allergies No known active allergies Active Problems Problem Noted Date Diagnosed Date Abnormal mammogram 09/19/2010 Encounters Date Type Department Care Team Description 10/31/2024 9:09 AM CDT - 10/31/2024 11:59 PM CDT Hospital Encounter [facility] [address] [place] [address] Screening mammogram, encounter for Discharge Disposition: Discharge [...] on file Legal Sex Female 4:15 PM ADMISSION LIAISON Gender Identity Not on file Sexual Orientation [...] cm (5' 4 ) 07/10/2023 8:21 AM ADMISSION LIAISON Body Mass Index 26.61 04/19/2020 1:41 PM [...] 05/08/2017, Additional history exists Breast Cancer Screening-Mammogram 10/31/2025 10/31/2024, 07/10/2023, 06/28/2022, Additional history exists DTaP/Tdap/Td [...] nal Result from Last 3 Months Insurance [facility] Address: [address] [address] [place] [address] [facility] Address: [address] [address] [place] [address] MEDICARE [facility] [place] [id number] Care Teams Specialty Trimmer Relationship Specialty Start Date End Date Shen Pizarro MD [address] [place] [address] PCP - General 12/07/16
== END 2024-11-17 13:32 | disposition home or self-care (01) ==
LOC: CHSIMG 13:32
PROVIDERS: PCP Internal Medicine; Visit Provider Internal Medicine
DX: R59.0 Localized enlarged lymph nodes (principal)
CPT/HCPCS: 76536

== ENCOUNTER 2025-06-09 09:34 | Outpatient (CLI) | payer MEDICARE, OTHER, SELFPAY ==
--- NOTE | ~2025-06-09 | DEXA_ITS ---
Bone Density Report Name: YUE FARLEY Age: 69 Sex: Female Ethnicity: White Date of : 1955 Indication: postmenopausal; screening for osteoporosis; parental hip fracture; hysterectomy; Referring Provider: Shen Pizarro Study: Bone densitometry was performed. Exam Date: June 09, 2025 Accession number: [id number] Bone Density: Region BMD T-score Z-score Classification AP Spine(L1-L4) 0.946 -0.9 1.1 Normal Femoral Neck (Left) 0.717 -1.2 0.6 Osteopenia Total Hip (Left) 0.963 0.2 1.6 Normal Femoral Neck (Right) 0.754 -0.9 0.9 Normal Total Hip (Right) 0.949 0.1 1.5 Normal Femoral Neck Mean 0.736 -1.0 0.7 Normal Total Hip Mean 0.956 0.1 1.6 Normal World Health Organization criteria for BMD impression classify patients as: Normal (T-score at or above -1.0), Osteopenia (T-score between -1.0 and -2.5), or Osteoporosis (T-score at or below -2.5). 10-year Fracture Risk(1): Major Osteoporotic Fracture 15% Hip Fracture 2.0% Reported Risk Factors: [place] (), Neck BMD=0.717, BMI=26.3, parental fracture (1) FRAX(R) Version 3.08. Fracture probability calculated for an untreated patient. Fracture probability may be lower if the patient has received treatment. Clinical Information Provided by Patient: Parent has had a hip fracture Has used the following medications: HRT (i.e. estrogen/hormone therapy) Has the following medical conditions: Hysterectomy Patient maximum height was 64 Menopause Age: 50 No regular weight bearing exercise Drinks caffeinated beverages Onset of menses at age 15 Number of children 2 Impression: The patient has low bone mass, based on the Left Femoral Neck T-score. The patient has risk factors, including: parental hip fracture. Discussion: BONE DENSITY IS LOW AT ONE OR MORE SKELETAL SITES. This patient's lowest T-score is low at one or more skeletal sites. It meets the World Health Organization's (WHO) criteria for ?low bone mass? (T-score between -1.0 and -2.5). The patient's 10-year risk of fracture as calculated by FRAX is less than the threshold where pharmacological therapy is recommended by the National Osteoporosis Foundation (NOF). However, all treatment decisions require clinical judgment and consideration of individual patient factors, including patient preferences, comorbidities, previous drug use, risk factors not captured in the FRAX model (e.g., frailty, falls, vitamin D deficiency, increased bone turnover, interval significant decline in bone density) and possible under or overestimation of fracture risk by FRAX. The patient should follow a healthful lifestyle (good nutrition with adequate calcium and vitamin D, and appropriate weight-bearing exercise). Follow-Up: Consider repeating this study in 2 to 3 years to reassess this patient's status, or sooner if there is some new clinical indication. Reported by: MATTHEW on 06/09/2025 11:44:00 AM. Reviewed, dictated and finalized at location A.
--- OUTSIDE RECORDS SUMMARY | 2025-06-09 11:06 | XMS_ITS | Clinical Summary ---
Author Organization [facility] Address [address] [place] [address] Care Team Providers Care Neonatal Intensive Care Nurse Name Role Phone Shen Pizarro MD Primary Care Provider [phone] Allergies No known active allergies Active Problems [...] on file Legal Sex Female 4:15 PM SIGNS CLEANER Gender Identity Not on file Sexual Orientation [...] 1:41 PM CDT Height 162.6 cm (5' 4) 07/10/2023 8:21 AM SIGNS CLEANER Body Mass Index 26.61 04/19/2020 1:41 PM [...] Well Visit 65+ 12/28/2020 Influenza Vaccine (#1) 2025 9, 05/20/2018, 05/08/2017, Additional history exists Breast [...] Most Recently Relevant to Health Maintenance Insurance CHOICE PLUS CHOICE PLUS MEDICARE [employer] [place] [address] Care Teams Neonatal Intensive Care Nurse Relationship Specialty Start Date End Date Shen Pizarro MD [address] [place], [place] [id number] PCP - General 12/07/16
== END 2025-06-09 09:35 | disposition home or self-care (01) ==
LOC: CHSIMG 09:35
PROVIDERS: PCP Internal Medicine; Visit Provider Internal Medicine
DX: Z78.0 Asymptomatic menopausal state (principal); M85.88 Other specified disorders of bone density and structure, other site
CPT/HCPCS: 77080